=== PATIENT | male | born 1990 | race Caucasian/White ===

== ENCOUNTER 2018-07-28 17:00 | Emergency (ER) | payer MEDICAID ==
[~2018-07-28] VITALS: Ht 175.3 cm; Wt 72.7 kg
[~2018-07-28 17:00] MED LIST: GABA-532 PO; LORA-269 PO; OLAN10TA19 PO
[2018-07-28 17:13] VITALS: BP 133/87
--- NOTE | 2018-07-28 17:39 | NUR ---
pt is 27 yo male c/o "feels like my brain is fried", pt said he was started on seroquel one week ago by Pati LOZANO at [facility] services to help him sleep, pt denies active suicide plan "I just want a way out", has appt 07/30/18 with [facility] services, pt has very minor abrasion to left wrist "I cut myself with a steak knife a week ago", has been on invega x1 year and zyprexa 5mg qhs, "my thoughts are jumbled and I just want to know if this feeling will go away", pt is calm, cooperative, , moved to room 15
[2018-07-28 17:40] LABS: BASOPHILS % (AUTO) 0.6 % (0-1); EOSINOPHILS # (AUTO) 0.1 X10'3 (0-0.9); EOSINOPHILS % (AUTO) 1.7 % (0-6); HEMATOCRIT 41.4 % (42.0-52.0); LYMPHOCYTES # (AUTO) 1.6 X10'3 (1.1-4.8); LYMPHOCYTES % (AUTO) 27.7 % (21-51); MEAN CORPUSCULAR HEMOGLOBIN 30.9 PG (27.0-31.0); MEAN CORPUSCULAR HGB CONC 33.8 g/dL (33.0-36.5); MEAN CORPUSCULAR VOLUME 91.4 FL (78-98); MEAN PLATELET VOLUME 8.5 FL (7.4-10.4); MONOCYTES # (AUTO) 0.4 X10'3 (0-0.9); MONOCYTES % (AUTO) 7.3 % (2-12); NEUTROPHILS # (AUTO) 3.6 X10'3 (1.8-7.7); NEUTROPHILS % (AUTO) 62.7 % (42-75); PLATELET COUNT 221 X10'3 (140-440); RED BLOOD COUNT 4.52 X10'6 (4.70-6.10); RED CELL DISTRIBUTION WIDTH 12.9 % (11.5-14.5); WHITE BLOOD COUNT 5.8 X10'3 (4.5-11.0)
--- NOTE | 2018-07-28 17:47 | NUR ---
DR WHITE AT BEDSIDE TO EVAL PT
[2018-07-28 17:53] LABS: ALANINE AMINOTRANSFERASE 29 U/L (12-78); ALBUMIN 4.6 G/DL (3.4-5.0); ALBUMIN/GLOBULIN RATIO 1.4 (1.1-1.5); ALKALINE PHOSPHATASE 44 IU/L (46-116); ANION GAP 11 (8-16); ASPARTATE AMINO TRANSFERASE 15 U/L (10-37); BILIRUBIN,TOTAL 0.2 MG/DL (0.1-1.0); BLOOD UREA NITROGEN 17 MG/DL (7-18); BUN/CREATININE RATIO 24.3 (5.4-32.0); CALCIUM 8.8 MG/DL (8.5-10.1); CHLORIDE 107 MMOL/L (99-107); GLUCOSE 107 MG/DL (70-104); POTASSIUM 3.6 MMOL/L (3.5-5.1); SODIUM 142 MMOL/L (135-145); TOTAL CARBON DIOXIDE 23.9 MMOL/L (24-32); TOTAL PROTEIN 7.8 G/DL (6.4-8.2); eGFR > 90 ML/MIN
[2018-07-28 18:03] LABS: ETHANOL < 0.010 GM/DL (0.0-0.010)
[2018-07-28 18:53] LABS: URINE AMPHETAMINE SCREEN NEGATIVE (Neg); URINE BARBITUATE SCREEN NEGATIVE (Neg); URINE BENZODIAZEPINES SCREEN NEGATIVE (Neg); URINE CANNABINOID SCREEN POSITIVE (Neg); URINE COCAINE SCREEN NEGATIVE (Neg); URINE METHADONE SCREEN NEGATIVE (Neg); URINE OPIATE SCREEN NEGATIVE (Neg); URINE PHENCYCLIDINE SCREEN NEGATIVE (Neg)
[2018-07-28 18:56] LABS: COLOR,URINE YELLOW (Yellow); GLUCOSE, URINE NEGATIVE (Neg); KETONES,URINE NEGATIVE (Neg); LEUKOCYTE ESTERASE ,URINE NEGATIVE (Neg); NITRITES, URINE NEGATIVE (Neg); OCCULT BLOOD,URINE NEGATIVE (Neg); PROTEIN,URINE NEGATIVE (Neg); UROBILINOGEN,URINE 0.2 E.U/dL (0.2-1.0)
--- NOTE | 2018-07-28 19:12 | NUR ---
pt gives verbal consent to let parents know if he gets transferred out.
--- NOTE | 2018-07-28 19:13 | NUR ---
PT IS SPEAKING TO STAFF, NO S/S OF DISTRESS OBSERVED
[2018-07-28 19:16] LABS: UA COLLECTION TYPE CLN CATCH MIDSTREAM
[2018-07-28 19:17] LABS: CLARITY,URINE CLOUDY (Clear)
[2018-07-28 19:18] LABS: AMORPHOUS PHOSPHATES 4+; BACTERIA,URINE NONE SEEN /HPF (Neg); MUCUS STRANDS MODERATE /LPF (Neg); RBC,URINE NONE SEEN /HPF (0-2); SQUAMOUS EPITHELIAL CELL,UR FEW /LPF (FEW); WBC,URINE NONE SEEN /HPF (0-4)
--- NOTE | 2018-07-28 20:23 | NUR ---
PT IS ON SITTING UP IN BED, HAS EAR PLUGS IN PLACE, DOOR CLOSED VISIBLE TO STAFF
--- NOTE | 2018-07-28 20:50 | NUR ---
INITIATED TELEPSYCH CALLED SOC [phone]
--- NOTE | 2018-07-28 21:47 | NUR ---
PT UP TO BATHROOM. STATES HE FEELS LIKE HE'S GOING TO .
[2018-07-28] MEDS ORDERED: OLANZapine 2.5MG tablet PO SCH (22:00)
[2018-07-28] MEDS ORDERED: OLANZapine 2.5MG tablet PO ONE (22:00)
--- NOTE | 2018-07-28 22:01 | NUR ---
PT HAD VERBAL OUTBURST RESULTING IN THE NEED FOR SECURITY TO BE CALLED. PT UPSET THAT IT IS 10PM AND HE HASN'T HAD HIS 8:30PM MEDICATION. EXPLAINED TO PT THAT WE ARE ATTEMPTING TO GET HIS MEDICATIONS BUT THAT THINGS ARE DONE DIFFERENTLY HERE IN ER AND HIS MEDS MAY NOT ALWAYS BE TIMED HE WISHES. PT IS GIVEN TIME TO CALM DOWN AND SECURITY ONLY HAD TO STAND BY.
[2018-07-28] MEDS: acetaminophen 325mg tablet PO ONE ×2 (22:06→22:10)
--- NOTE | 2018-07-28 22:20 | NUR ---
PT GIVEN MEDICATION (ZYPREXA) AND OFFERED TYLENOL FOR HIS HEADACHE. PT REFUSED TYLENOL AND CONTINUES TO BE AGITATED, LAYING ON GURNEY.
--- NOTE | 2018-07-28 23:22 | NUR ---
TELEPSYCH IN PROGRESS
--- NOTE | 2018-07-28 23:39 | NUR ---
PT EXITS ROOM AND APPOLOGIZES FOR HIS EARLIER BEHAVIOR. HE THANKS ME FOR GETTING HIS MEDICATIONS ORDERED.
[2018-07-29] MEDS ORDERED: olanzapine 10mg tablet PO SCH (21:00)
== END 2018-07-29 00:25 ==
LOC: ER 17:00
DX: R45.851 Suicidal ideations (principal); R41.0 Disorientation, unspecified; F31.9 Bipolar disorder, unspecified; F12.90 Cannabis use, unspecified, uncomplicated; Z98.890 Other specified postprocedural states; Z86.14 Personal history of Methicillin resistant Staphylococcus aureus infection; Z88.8 Allergy status to other drugs, medicaments and biological substances; Z79.899 Other long term (current) drug therapy
CPT/HCPCS: 36415; 80053; 80305; 80320; 81001; 84443; 85025; 99285

== ENCOUNTER 2019-04-04 09:58 | Emergency (ER) | payer MEDICAID ==
[~2019-04-04] VITALS: Ht 175.3 cm; Wt 74.2 kg
[~2019-04-04 09:58] MED LIST changes: -GABA-532 PO; -LORA-269 PO
[2019-04-04 10:01] VITALS: BP 161/85
[2019-04-04] MEDS ORDERED: AMOX500C2 PO (10:44)
== END 2019-04-04 11:02 | disposition home or self-care (01) ==
LOC: ER 09:58
DX: K02.9 Dental caries, unspecified (principal); F31.9 Bipolar disorder, unspecified; F10.99 Alcohol use, unspecified with unspecified alcohol-induced disorder; F12.90 Cannabis use, unspecified, uncomplicated; Z86.14 Personal history of Methicillin resistant Staphylococcus aureus infection; Z98.890 Other specified postprocedural states; Z88.8 Allergy status to other drugs, medicaments and biological substances; Z79.899 Other long term (current) drug therapy; Y90.9 Presence of alcohol in blood, level not specified
CPT/HCPCS: 99283

== ENCOUNTER 2020-06-13 09:46 | Emergency (ER) | payer MEDICAID ==
[~2020-06-13] VITALS: Ht 175.3 cm; Wt 75.8 kg
[2020-06-13 09:51] VITALS: BP 117/84
[2020-06-13] MEDS ORDERED: LIDOcaine 1% W/epiNEPHrine 1:200,000 10ml vial IJ ONE (10:10)
[2020-06-13] MEDS ORDERED: TETanus/Pertussis (Acell)/Diphther VAC/PF (Tdap-Adult) 0.5ml syringe IMVAC ONE (10:10)
[2020-06-13] MEDS ORDERED: CEPH500C5 PO (10:16)
[2020-06-13] MEDS ORDERED: IBUP-1984 PO (10:16)
== END 2020-06-13 11:03 | disposition home or self-care (01) ==
LOC: ER 09:46
DX: L03.032 Cellulitis of left toe (principal); M79.675 Pain in left toe(s); M79.89 Other specified soft tissue disorders; F31.9 Bipolar disorder, unspecified; F12.90 Cannabis use, unspecified, uncomplicated; Z20.3 Contact with and (suspected) exposure to rabies; Z86.14 Personal history of Methicillin resistant Staphylococcus aureus infection; Z98.890 Other specified postprocedural states; Z72.89 Other problems related to lifestyle; Z88.8 Allergy status to other drugs, medicaments and biological substances; Z79.2 Long term (current) use of antibiotics; Z79.899 Other long term (current) drug therapy
CPT/HCPCS: 10060; 90471; 90715; 99283

== ENCOUNTER 2020-10-02 03:46 | Emergency (ER) | payer MEDICAID ==
[~2020-10-02] VITALS: Ht 175.3 cm; Wt 75.0 kg
[~2020-10-02 03:46] MED LIST changes: +CEPH-585 PO
[2020-10-02 03:54] VITALS: BP 146/101
[2020-10-02] MEDS ORDERED: DOXY100C43 PO (04:19)
[2020-10-02] MEDS ORDERED: DOXYCYCLINE 100MG CAPSULE PO STA (04:20)
== END 2020-10-02 04:38 | disposition home or self-care (01) ==
LOC: ER 03:46
DX: L03.116 Cellulitis of left lower limb (principal); F31.9 Bipolar disorder, unspecified; F12.90 Cannabis use, unspecified, uncomplicated; Z86.14 Personal history of Methicillin resistant Staphylococcus aureus infection; Z98.890 Other specified postprocedural states; Z72.89 Other problems related to lifestyle; Z88.8 Allergy status to other drugs, medicaments and biological substances; Z79.899 Other long term (current) drug therapy
CPT/HCPCS: 99284

== ENCOUNTER 2022-12-09 17:40 | Emergency (ER) | payer MEDICAID ==
[~2022-12-09] VITALS: Ht 175.3 cm; Wt 84.0 kg
[~2022-12-09 17:40] MED LIST changes: -CEPH-585 PO; -OLAN10TA19 PO; +OLAN10TA73 PO
[2022-12-09 17:43] VITALS: BP 125/82
[2022-12-09] MEDS ORDERED: ibuprofen tablet 400 MG TABLET PO ONE (19:10)
[2022-12-09] MEDS ORDERED: cephalexin 500mg capsule PO ONE (19:10)
[2022-12-09] MEDS ORDERED: DOXYCYCLINE 100MG CAPSULE PO STA (19:10)
[2022-12-09] MEDS ORDERED: CEPH250T PO (19:34)
[2022-12-09] MEDS ORDERED: DOXY-356 PO (19:34)
== END 2022-12-09 19:51 | disposition home or self-care (01) ==
LOC: ER 17:40
DX: L03.115 Cellulitis of right lower limb (principal); F31.9 Bipolar disorder, unspecified; F12.90 Cannabis use, unspecified, uncomplicated; Z88.8 Allergy status to other drugs, medicaments and biological substances; Z79.2 Long term (current) use of antibiotics; Z79.899 Other long term (current) drug therapy
CPT/HCPCS: 99284

== ENCOUNTER 2023-08-24 11:54 | Emergency (ER) | payer MEDICAID ==
[~2023-08-24] VITALS: Ht 177.8 cm; Wt 81.8 kg
[2023-08-24 12:10] VITALS: BP 145/107; PULSE 101; RESP 18; TEMP 98; O2SAT 98
== END 2023-08-24 12:51 | disposition left against medical advice (07) ==
LOC: ER 11:55
DX: T88.7XXA Unspecified adverse effect of drug or medicament, initial encounter (principal); T50.905A Adverse effect of unspecified drugs, medicaments and biological substances, initial encounter; Z53.21 Procedure and treatment not carried out due to patient leaving prior to being seen by health care provider; Y92.89 Other specified places as the place of occurrence of the external cause
CPT/HCPCS: 99281